=== PATIENT | male | born 1990 | race Caucasian/White ===

== ENCOUNTER 2023-04-10 11:17 | Inpatient (IN) ==
[2023-04-10] MEDS ORDERED: levETIRAcetam 1,000 MG in 0.9 % SODIUM CHLORIDE 100 ML IV STA ×2 (11:33→13:55)
[2023-04-10] MEDS ORDERED: SODIUM CHLORIDE 0.9% 1,000 ML IV ONE (11:34)
--- NOTE | 2023-04-10 11:37 | Emergency Department Note ---
Impression & Plan Seizure ED Provider Note Name: KAYLYNN LANIER Age: 33 Sex: Male Arrives Via: Ambulance Informant: Patient, EMS, fianc ED Provider: Dillan Hamilton MD Chief Complaint: Seizure Impression: As per impressions above Medical Decision Makin-year-old healthy male with a remote history of seizures though no seizures in several years. He has been doing well and feeling fine. This morning while at work patient was noted to have seizure for few minutes which broke followed by postictal period. Arrives in no distress awake alert oriented with no complaints. Patient was a bit confused about what is Keppra dose was so he was given a single 1 g dose IV while awaiting CT of the head and cervical spine. While in CT he was noted to have an acute seizure. Lasted a few minutes before eventually breaking after 2 mg IV Ativan. Did bite the tip of his tongue does not require closure. CT of the head and cervical spine eventually obtained which is unremarkable. Discussed with Mateo neurology who suggested further Keppra and hospitalization for further monitoring. Repeat evaluations patient still bit postictal but is starting to slowly wake up. Significant other is comfortable plan for hospitalization. Patient is afebrile he is no white count elevation he has no nuchal rigidity. I do not suspect that there is an underlying infection he is not septic or meningitic at this time. Triage/Nursing Notes reviewed by Me Differential:Primary seizure disorder, dehydration, exhaustion, drug/alcohol intoxication, electrolyte imbalance, intracranial mass or hemorrhage, many other pathologies considered Vital Signs: reviewed and remarkable for no significant abnormalities Interventions: Keppra 1 g IV x 2, Ativan 2 mg IV Labs:ED labs Reviewed by me and remarkable for no significant abnormalities other than elevated prolactin level consistent with recent seizure. Imaging:CT of the head without contrast as per my informal interpretation there is no intracranial mass or bleed appreciated. Confirmed by radiologist. CT of the cervical spine without contrast as per my informal interpretation there is no fracture or dislocation. Confirmed radiologist. Consults:Dr Ari Galindo Neurology. Dr Junito Galindo Hospitalist Plan: Disposition:Hospitalization. Condition: Good History of Present Illness: 33-year-old male arrives for evaluation post seizure. Patient had been at work this morning as he been feeling pretty tired the last few days. Per EMS patient with a 2 to 3-minute seizure which was tonic-clonic. Patient did strike his head as he fell to the ground. Patient states he feels a little bit tired but otherwise feels well now. Per EMS patient had a several minute postictal period. Patient has been having no headache, neck pain, chest pain, shortness of breath, fevers, chills, sick contacts or other concerning signs or symptoms. He does note that his 1-year-old daughter has been keeping him up recently and the holidays were busy. Denies any alcohol or drug use. Last seizure was in 2018 and has been on a stable dose of Keppra for this. Denies any other concerning signs or symptoms. States he otherwise feels well. Past Medical History:Epilepsy Home Medications:Keppra (no missed doses) Allergies:No known drug allergies Vitals:Blood Pressure: 115/71, Pulse 78, RR 18, T 36.6C, O2 97% on RA Physical Exam: GENERAL: Patient is tired/dehydrated appearing and in minimal distress. HEAD: Hematoma/abrasion left forehead RESPIRATORY: No dyspnea. Clear to auscultation and equal bilaterally. CARDIOVASCULAR: Regular rate and rhythm.No murmur appreciated. GASTROINTESTINAL: Abdomen soft, non-tender, no peritonitis. EXTREMITIES: Normal motion all extremities, no cyanosis, no edema. NEUROLOGIC: Alert and oriented. No focal neurologic deficits appreciated SKIN: No rash, no jaundice, no diaphoresis. PSYCH: Appropriate GCS: 15 ED Course: Times/Reassessments: Active seizure shortly after arrival broke with Ativan. Patient still postictal around time of hospitalization but is waking up. Critical Care: I have personally spent 30 minutes of critical care time in the direct management of this patient. Status Epilepticus with active seizure in ED. This was a life/limb threatening event. This 30 minutes is in excess of all separately billable procedures. Dillan Hamilton MD Past Med/Surg History Medical History (Updated 04/10/23 @ 17:34 by Dillan Hamilton MD) BRBPR (bright red blood per rectum) Surgical History (Updated 04/10/23 @ 15:22 by MARILUZ Masterson) No pertinent past surgical history Family History (Updated 04/10/23 @ 15:22 by MARILUZ Masterson) Father Colorectal cancer Social History (Updated 04/10/23 @ 15:22 by MARILUZ Masterson) Smoking Status: Never smoker Second Hand Exposure: No; Do You Dip or Chew Tobacco: No; Hx Alcohol Use: Yes Alcohol type: beer Hx Substance Use: No Preferred Language: Jamaican Communication Ability: Effective In Store Banker Required: No Beliefs That Will Affect Care: None Current Living Situation: Family Other Information That Helps Us Care for You: No Feels Safe at Home: Yes Assistive Devices: None Allergies Allergies Allergy/AdvReac Type Severity Reaction Status Date / Time No Known Allergies Allergy Mild Unverified 08/29/12 18:48 Home Meds Home Medications Medication Instructions Recorded Confirmed LORATADINE & PSEUDOEPHEDRINE 1 tab PO DAILY #0 tabs 06/11/15 04/10/23 (CLARITIN-D 24 HOUR) Levetiractam (Levetiracetam) 1,000 mg PO BID 04/10/23 04/10/23 Results & Data (ED) Vital Signs Vital Signs - 24 hr 04/10/23 11:24 04/10/23 11:27 04/10/23 11:30 Temperature 36.6 C Temperature Source Oral Pulse Rate 83 78 79 Pulse Rate [Apical] Respiratory Rate 18 22 Respiratory Effort / Characteristics Non-Labored Spontaneous Respiratory Depth Normal Respiratory Pattern Regular Blood Pressure 115/71 123/75 Blood Pressure [Left Arm] Blood Pressure Mean 85 91 Blood Pressure Mean [Left Arm] Blood Pressure Position Sitting Pulse Oximetry 97 97 Oxygen Delivery Method Room Air Room Air Sepsis Recent Fever Within 48 Hours No Sepsis New/Unexplained Change in Mental Status N/A Sepsis Action Taken by Nursing No Action Required 04/10/23 12:00 04/10/23 12:00 04/10/23 12:10 Temperature Temperature Source Pulse Rate 104 H Pulse Rate [Apical] 114 H Respiratory Rate 16 23 Respiratory Effort / Characteristics Respiratory Depth Respiratory Pattern Blood Pressure 127/69 Blood Pressure [Left Arm] 127/69 Blood Pressure Mean 88 Blood Pressure Mean [Left Arm] 88 Blood Pressure Position Pulse Oximetry 95 96 Oxygen Delivery Method Room Air Room Air Room Air Sepsis Recent Fever Within 48 Hours Sepsis New/Unexplained Change in Mental Status Sepsis Action Taken by Nursing 04/10/23 13:00 04/10/23 13:30 04/10/23 14:00 Temperature Temperature Source Pulse Rate 88 83 68 Pulse Rate [Apical] Respiratory Rate 16 18 20 Respiratory Effort / Characteristics Respiratory Depth Respiratory Pattern Blood Pressure 114/69 108/65 111/71 Blood Pressure [Left Arm] Blood Pressure Mean 84 79 84 Blood Pressure Mean [Left Arm] Blood Pressure Position Pulse Oximetry 96 95 98 Oxygen Delivery Method Room Air Room Air Room Air Sepsis Recent Fever Within 48 Hours Sepsis New/Unexplained Change in Mental Status Sepsis Action Taken by Nursing Laboratory Data 04/10/23 11:37 04/10/23 11:37 Lab Results 04/10/23 04/10/23 Range/Units 11:37 14:15 WBC 9.50 (4.8-10.8) K/ul RBC 5.05 (4.70-6.10) M/uL Hgb 15.7 (14.0-18.0) g/dl Hct 44.4 (42.0-52.0) % MCV 87.9 (80.0-100.0) fL MCH 31.1 (25.0-34.0) pg MCHC 35.4 (32.0-36.0) g/dL RDW Std Deviation 37.8 (36.4-46.3) fL RDW Coeff of [place]ooq 11.8 (11.5-14.5) % Plt Count 201 (130-400) K/uL MPV 10.9 (9.4-12.4) fL Immature Gran % (Auto) 0.3 % Neut % (Auto) 77.0 % Lymph % (Auto) 15.9 % [place] % (Auto) 5.6 % Eos % (Auto) 0.7 % Baso % (Auto) 0.5 % Neut # (Auto) 7.31 H (1.40-6.50) K/uL Lymph # (Auto) 1.51 (1.20-3.40) K/uL [place] # (Auto) 0.53 (0.11-0.59) K/uL Eos # (Auto) 0.07 (0.00-0.50) K/uL Baso # (Auto) 0.05 (0.00-0.20) K/uL Immature Gran # (Auto) 0.03 (0.01-0.20) K/uL Sodium 135 L (136-145) mmol/L Potassium 3.7 (3.5-5.1) mmol/L Chloride 104 (98-107) mmol/L Carbon Dioxide 19 L (21-32) mmol/L Anion Gap 12 H (3-11) BUN 14 (6-23) mg/dl Creatinine 0.97 (0.6-1.4) mg/dl Est Cr Clr Drug Dosing 114.3 ml/min Est GFR ( Amer) 117.6 ml/min Est GFR (Non-Af Amer) 101.4 ml/min BUN/Creatinine Ratio 14.4 (10-20) Glucose 192 H (70-99(Fasting)) mg/dl Calcium 9.3 (8.6-10.3) mg/dl Total Bilirubin 1.1 H (0.2-1.0) mg/dl Direct Bilirubin 0.1 (0-0.2) mg/dl AST 20 (13-39) U/L ALT 18 (7-52) U/L Alkaline Phosphatase 62 (34-104) U/L Total Protein 7.0 (6.0-8.3) gm/dl Albumin 4.4 (3.4-5.0) gm/dl Prolactin 52.10 ng/ml SARS-CoV-2 (PCR) NEGATIVE (Negative) Influenza Type A (PCR) Negative (Neg) Influenza Type B (PCR) Negative (Neg) RSV (RT-PCR) Negative (Neg) Administered Medications Discontinued Medications Levetiracetam 1,000 mg/ Sodium (Chloride) 110 mls @ 440 mls/hr IV NOW STA Stop: 04/10/23 11:47 Last Infusion: 04/10/23 12:27 Dose: Infused Documented By: Admin: 04/10/23 11:59 Dose: 440 mls/hr Documented By: YAMILET Sodium Chloride (Nss) 1,000 mls @ 999 mls/hr IV .Q1H1M ONE Stop: 04/10/23 12:34 Last Infusion: 04/10/23 14:36 Dose: Infused Documented By: Admin: 04/10/23 11:36 Dose: 999 mls/hr Documented By: YAMILET Levetiracetam 1,000 mg/ Sodium (Chloride) 110 mls @ 440 mls/hr IV NOW STA Stop: 04/10/23 14:09 Last Infusion: 04/10/23 16:34 Dose: Infused Documented By: Admin: 04/10/23 14:40 Dose: 440 mls/hr Documented By: YAMILET Lorazepam (Lorazepam 1 Mg/1 Ml Syr Ed Inj Use) Confirm Administered Dose 1 mg .ROUTE .STK-MED ONE Stop: 04/10/23 11:56 Last Admin: 04/10/23 11:59 Dose: Not Given Documented By: YAMILET Lorazepam (Lorazepam 1 Mg/1 Ml Syr Ed Inj Use) 2 mg IV ONE STA Stop: 04/10/23 11:57 Last Admin: 04/10/23 11:59 Dose: 2 mg Documented By: YAMILET Lorazepam (Lorazepam 1 Mg/1 Ml Syr Ed Inj Use) Confirm Administered Dose 1 mg .ROUTE .STK-MED ONE Stop: 04/10/23 11:58 Last Admin: 04/10/23 11:59 Dose: Not Given Documented By: YAMILET Imaging Data Radiologist's Impression: Cervical Spine CT 04/10/23 11:33 CT cervical spine wo con CLINICAL HISTORY: 33 years-old Male with trauma, post seizure confusion. Acute head trauma with seizure like activity COMPARISON: Head CT of same day TECHNIQUE: Multiple axial CT images of the cervical spine were obtained without contrast. A dose lowering technique was utilized adhering to the principles of ALARA. FINDINGS: No acute cervical spine fracture, subluxation or significant degenerative changes. The cervical soft tissues appear unremarkable. The visualized lung apices appear clear. IMPRESSION: No acute cervical spine fracture or subluxation. ACT 112: Negative or not required by law. The above report was generated using voice recognition software. It may contain grammatical, syntax or spelling errors. Electronically signed by: Good Li M.D. 04/10/2023 12:[address] 04/10/23 11:33 CT SCAN OF THE BRAIN WITHOUT IV CONTRAST CLINICAL HISTORY: Seizure. Forehead injury. COMPARISON STUDY: CT of the brain dated 06/11/2015. TECHNIQUE: Unenhanced axial CT scan of the brain is performed from the vertex to the skull base. A dose lowering technique was utilized adhering to the principles of ALARA. CT DOSE: 1142.41 mGy.cm FINDINGS: Brain parenchyma: The brain parenchyma is normal in appearance. There is no hemorrhage, mass effect, or evidence of acute territorial ischemia by CT criteria. Siegel-white matter differentiation is preserved. No extra-axial fluid collection is seen. Ventricles, sulci, cisterns: Normal in configuration. Intracranial vasculature: The visualized intracranial vasculature at the skull base is normal in appearance. Calvarium: Unremarkable. Sinuses and mastoids: There is mild minor mucosal thickening within the ethmoid sinuses. An 8 mm retention cyst is noted in the left sphenoid sinus. The mastoid air cells are well pneumatized. Orbits: The bony orbits are grossly intact. IMPRESSION: No acute intracranial abnormality. ACT 112: Negative or not required by law. Electronically signed by: En Bird M.D. 04/10/2023 12:52 PM Discharge Plan Visit Data Chief Complaint: Seizure ED Provider: Dillan Hamilton Discharge Problem: Seizure Patient Disposition: Admitted As Inpatient Discharge Instructions Interventions: ED Discharge Assessment Last Done: 04/10/23 16:19
[2023-04-10] MEDS ORDERED: LORazepam 1 MG/1 ML SYR ED Inj Use ONE ×2 (11:55→11:57)
[2023-04-10] MEDS ORDERED: LORazepam 1 MG/1 ML SYR ED Inj Use IV STA (11:56)
[2023-04-10 12:05] LABS: Basophils # (auto) 0.05 K/uL (0.00-0.20); Basophils % (auto) 0.5 %; Eosinophils # (auto) 0.07 K/uL (0.00-0.50); Eosinophils % (auto) 0.7 %; Hematocrit (blood only) 44.4 % (42.0-52.0); Hemoglobin 15.7 g/dl (14.0-18.0); Immature Granulocytes # (auto) 0.03 K/uL (0.01-0.20); Immature Granulocytes % (auto) 0.3 %; Lymphocytes # (auto) 1.51 K/uL (1.20-3.40); Lymphocytes % (auto) 15.9 %; Mean Corpuscular Hemoglobin 31.1 pg (25.0-34.0); Mean Corpuscular Hgb Conc 35.4 g/dL (32.0-36.0); Mean Corpuscular Volume 87.9 fL (80.0-100.0); Mean Platelet Volume 10.9 fL (9.4-12.4); Monocytes # (auto) 0.53 K/uL (0.11-0.59); Monocytes % (auto) 5.6 %; Neutrophils # (auto) 7.31 K/uL (1.40-6.50); Platelet Count 201 K/uL (130-400); RDW Coefficient of Variation 11.8 % (11.5-14.5); RDW Standard Deviation 37.8 fL (36.4-46.3); Red Blood Count 5.05 M/uL (4.70-6.10)
[2023-04-10 12:18] LABS: Albumin Level 4.4 gm/dl (3.4-5.0); BUN Creatinine Ratio 14.4 (10-20); Bilirubin Direct 0.1 mg/dl (0-0.2); Bilirubin,Total 1.1 mg/dl (0.2-1.0); Calcium 9.3 mg/dl (8.6-10.3); Creatinine Clr Calc Pharmacy 114.3 ml/min; Est GFR (African American) 117.6 ml/min; Est GFR (Non-African American) 101.4 ml/min; Potassium 3.7 mmol/L (3.5-5.1)
--- OUTSIDE RECORDS SUMMARY | 2023-04-10 12:53 | External Medical Summary | Summary of Care ---
Author Name Unknown Organization [facility] Address [address] [place] [address] Phone [phone] Care Team Providers Care Process Mechanic Name Role Phone Wang Davis MD Primary Care Provider [phone] Reason for Visit * Reason Comments Acute Pt presents with sin us pressure, chest congestion, sinus drainage, and headache. Symptoms started about a week ago. Encounter Details Date Type Department Care Team (Late st Contact Info) Description 03/15/2023 7:40 AM EST Office Visit [facility] [address] [place] [address] Walter Hooper MD [address] [place] [address] Acute frontal sinusitis, recurrence not specified*; Bronchitis, complicated; Generalized convulsive epilepsy without intractable epilepsy (HCC) Allergies No known active allergiesdocumented as of this encounter (statuses as of 03/15/2023) Medications Medication Sig Dispensed Refills Start Date End Date Status levETIRAcetam 1000 MG Oral Tablet Take 1 Tablet by mouth in the morning and 1 Tablet before bedtime. 180 Tablet 3 05/04/2022 Active Amoxicillin-Pot Clavulanate 875-125 MG Oral Tablet (Augmentin) Take 1 Tablet by mouth in the morning and 1 Tablet before bedtime. Do all this for 10 days. 20 Tablet 0 03/15/2023 03/25/2023 Active Albuterol Sulfate HFA 108 (90 Base) MCG/ACT Inhalation Aerosol Solution Inhale 2 Puffs by mouth every 6 hours as needed (sob, cough). 18 g 1 03/15/2023 Active guaiFENesin ER 600 MG Oral Tablet Extended Release 12 Hour (Mucinex) Take 1 Tablet by mouth 2 times a day as needed for Congestion. Take with plenty of water. Do not cut, crush or chew 40 Tablet 2 03/15/2023 Active documented as of this encounter (statuses as of 03/15/2023) Active Problems Problem Noted Date Diagnosed Date Generalized convulsive epile psy without intractable epilepsy 05/18/2017 documented as of this encounter (statuses as of 03/15/2023) Resolved Problems Problem Noted Date Diagnosed Date Resolved Date Tobacco use disorder 05/18/2017 022 Seizure, grand mal 09/13/2016 8 NONE 11/02/2016 documented as of this encounter (statuses as of 03/15/2023) Immunizations Name Administration Dates Next Due TDAP (age 10 and older)(Boostrix) 07/19/2018 documented as of this encounter Social History Tobacco Use Types Packs/Day Years Used Date Smoking Tobacco: Former Cigarettes Q uit: 12/2020 Smokeless Tobacco: Never Alcohol Use Standard Drinks/Week Comments Yes 0 (1 standard drink = 0.6 oz pur e alcohol) PHQ-2 Answer Date Recorded PHQ-2 Score 0 07/19/2018 Sex and Gender Information Value Date Recorded Sex Assigned at Male 07/19/2018 3:07 PM EDT Gender Identity Male 07/19/2018 3:07 PM EDT Sexual Orientation Straight 07/19/2018 3: 07 PM EDT Job Start Date Occupation Industry Not on file Not on file Not on file documented as of this encounter Last Filed Vital Signs Vital Sign Reading Time Taken Comments Blood Pressure 108/72 03/15/2023 7:32 AM EST Pulse 72 03/15/2023 7:32 AM EST Temperature 37 C (98.6 F) 03/15/2023 7:32 AM EST Respiratory Rate 16 03/15/2023 7:32 AM EST Oxygen Saturation - - Inhaled Oxygen Concentration - - Weight 73.8 kg (162 lb 12.8 oz) 03/15/2023 7:32 AM EST Height - - Body Mass Index 20.9 01/02/2022 1:02 PM EDT documented in this encounter Progress Notes * Walter Hooper MD - 03/15/2023 7:43 AM EST Subjective Jason Almeida is a 33 year old male. Chief Complaint Patient presents with Acute Pt presents with sinus pressure, chest congestion, sinus drainage, and headache. Symptoms started about a week ago. HPI: Here for acute sinus infection , down to chest with productive coughs Worse in the morning Had low grade fever 3 days when he started sx But currently afebrile Known seasonal allergy ,using nasal sprays Hx of inhaler use in the past Known seizure d/o, stable, taking keppra No episode more than 5 yrs and f/u with neuro annually PMH: Patient Active Problem List Diagnosis Code Generalized convulsive epilepsy without intractable epilepsy (HCC) G40.309 Current Outpatient Medications Medication Sig Dispense Refill Amoxicillin-Pot Clavulanate 875-125 MG Oral Tablet (Augmentin) Take 1 Tablet by mouth in the morning and 1 Tablet before bedtime. Do all this for 10 days. 20 Tablet 0 Albuterol Sulfate HFA 108 (90 Base) MCG/ACT Inhalation Aerosol Solution Inhale 2 Puffs by mouth every 6 hours as needed (sob, cough). 18 g 1 guaiFENesin ER 600 MG Oral Tablet Extended Release 12 Hour (Mucinex) Take 1 Tablet by mouth 2 timesa day as needed for Congestion. Take with plenty of water. Do not cut, crush or chew 40 Tablet 2 levETIRAcetam 1000 MG Oral Tablet Take 1 Tablet by mouth in the morning and 1 Tablet before bedtime. 180 Tablet 3 No current facility-administered medications for this visit. Past Medical History: Diagnosis Date NONE Past Surgical History: Procedure Laterality Date NONE Review of patient's allergies indicates: No Known Allergies Family History Problem Relation Age of Onset Pancreatic cancer Father 57 Bone cancer Uncle (Paternal) 77 possible metastasis Family Status Relation Status Fa PUNC Social History Socioeconomic History Marital status: Single Spouse name: Not on file Number of children: Not on file Years of education: Not on file Highest education level: Not on file Occupational History Not on file Tobacco Use Smoking status: Former Types: Cigarettes Quit date: 12/2020 Years since quittin.2 Smokeless tobacco: Never Substance and Sexual Activity Alcohol use: Yes Drug use: No Sexual activity: Never Other Topics Concern Not on file Social History Narrative Not on file Social Determinants of Health Financial Resource Strain: Not on file Food Insecurity: Not on file Transportation Needs: Not on file Physical Activity: Not on file Stress: Not on file Social Connections: Not on file Intimate Partner Violence: Not on file Housing Stability: Not on file Review of Systems Constitutional: Positive for fatigue. Negative for activity change, appetite change, chills, diaphoresis, fever and unexpected weight change. HENT: Positive for congestion, postnasal drip and sinus pressure. Negative for ear discharge, ear pain, facial swelling, hearing loss, rhinorrhea, sinus pain, sneezing, sore throat and tinnitus. Eyes: Negative for visual disturbance. Respiratory: Positive for cough and chest tightness. Negative for shortness of breath and wheezing. Cardiovascular: Negative for chest pain, palpitations and leg swelling. Gastrointestinal: Negative for abdominal distention and abdominal pain. Endocrine: Negative. Allergic/Immunologic: Positive for environmental allergies. Neurological: Positive for headaches. Negative for dizziness, tremors, seizures, syncope, speech difficulty, weakness, light-headedness and numbness. Psychiatric/Behavioral: Positive for sleep disturbance. Negative for agitation and behavioral problems. Objective BP 108/72 | Pulse 72 | Temp 37 C (98.6 F) | Resp 16 | Wt 73.8 kg (162 lb 12.8 oz) | BMI 20.90 kg/m | BSA 1.96 m Physical Exam Constitutional: General: He is not in acute distress. Appearance: Normal appearance. He is not ill-appearing, toxic-appearing or diaphoretic. HENT: Head: Normocephalic and atraumatic. Nose: Congestion present. No rhinorrhea. Eyes: Extraocular Movements: Extraocular movements intact. Cardiovascular: Rate and Rhythm: Normal rate and regular rhythm. Pulses: Normal pulses. Heart sounds: Normal heart sounds. No murmur heard. Pulmonary: Effort: Pulmonary effort is normal. No respiratory distress. Breath sounds: No stridor. Rhonchi present. No wheezing or rales. Chest: Chest wall: No tenderness. Abdominal: Palpations: Abdomen is soft. Musculoskeletal: Right lower leg: No edema. Left lower leg: No edema. Neurological: General: No focal deficit present. Mental Status: He is alert and oriented to person, place, and time. Psychiatric: Mood and Affect: Mood normal. Behavior: Behavior normal. ASSESSMENT/PLAN: Acute frontal sinusitis, recurrence not specified (Primary) Bronchitis, complicated Generalized convulsive epilepsy without intractable epilepsy (HCC) Other orders - Amoxicillin-Pot Clavulanate 875-125 MG Oral Tablet (Augmentin); Take 1 Tablet by mouth in the morning and 1 Tablet before bedtime. Do all this for 10 days. - Albuterol Sulfate HFA 108 (90 Base) MCG/ACT Inhalation Aerosol Solution; Inhale 2 Puffs by mouth every 6 hours as needed (sob, cough). - guaiFENesin ER 600 MG Oral Tablet Extended Release 12 Hour (Mucinex); Take 1 Tablet by mouth 2 times a day as needed for Congestion. Take with plenty of water. Do not cut, crush or chew Cont OTC ABx 7-10 days Mucinex Hydration enough Walter Hooper MD documented in this encounter Nursing Notes * Whitney Moulton MED ASSIST - 03/15/2023 7:32 AM EST The patient has been properly identified by confirmation of name and date of . Chief Complaint Patient presents with Acute Pt presents with sinus pressure, chest congestion, sinus drainage, and headache. Symptoms started about a week ago. documented in this encounter Plan of Treatment Upcoming Encounters Date Type Department Care Team (Late st Contact Info) Description 05/04/2023 8:40 AM EST Office Visit Neurology [address] [place] [address] Judith Coleman MD [address] [place] [address] Health Maintenance Due Date Last Done Comments Hepatitis B (1 of 3 - 3-dose series) 1989 COVID-19 Vaccine (#1) 1989 Depression Screening 07/20/2019 07/19/2018 Influenza Vaccine (FLU shot) (#1) 2022 DTaP,Tdap,and Td Vaccines (7 - Td or Tdap) 07/19/2028 07/19/2018, 06/27/1993, 05/13/1990, Additional history exists GARDASIL-HPV IMMUNIZATION SERIES Aged Out No longer eligible based on patient's age to complete this topic MENINGOCOCCAL (MENACTRA/MENVEO) Aged Out No longer eligible based on patient's age to complete this topic Pneumococcal Vaccine: Pediatrics (0 to 5 Years) and At-Risk Patients (6 to 64 Years) Aged Out No longer eligible based on patient's age to complete this topic documented as of this encounter Medical Devices Not on filedocumented as of this encounter Visit Diagnoses Diagnosis Acute frontal sinusitis, recurrence not specified- Primary Bronchitis, complicated Bronchitis, not specified as acute or chronic Generalized convulsive epilepsy without intractable epilepsy (HCC) Generalized convulsive epilepsy without mention of intractable epilepsy documented in this encounter Care Teams Process Mechanic Relationship Specialty Start Date End Date Wang Davis MD [address] [place] [address] PCP - General Family Medicine 04/19/17 documented as of this encounter"
--- NOTE | 2023-04-10 12:54 | CT Scan Report ---
CT SCAN OF THE BRAIN WITHOUT IV CONTRAST CLINICAL HISTORY: Seizure. Forehead injury. COMPARISON STUDY: CT of the brain dated 06/11/2015. TECHNIQUE: Unenhanced axial CT scan of the brain is performed from the vertex to the skull base. A d ose lowering technique was utilized adhering to the principles of ALARA. CT DOSE: 1142.41 mGy.cm FINDINGS: Brain parenchyma: The brain parenchyma is normal in appearance. There is no hemorrhage, mass effect, or evidence of acute territorial ischemia by CT criteria. Siegel-white matter differentiation is preser ramu. No extra-axial fluid collection is seen. Ventricles, sulci, cisterns: Normal in configuration. Intracranial vasculature: The visualized intracranial vasculature at the skull base is normal in appe arance. Calvarium: Unremarkable. Sinuses and mastoids: There is mild minor mucosal thickening within the ethmoid sinuses. An 8 mm rete ntion cyst is noted in the left sphenoid sinus. The mastoid air cells are well pneumatized. Orbits: The bony orbits are grossly intact. IMPRESSION: No acute intracranial abnormality. ACT 112: Negative or not required by law. Electronically signed by: En Bird M.D. 04/10/2023 12:52 PM
--- NOTE | 2023-04-10 12:58 | CT Scan Report ---
CT cervical spine wo con CLINICAL HISTORY: 33 years-old Male with trauma, post seizure confusion. Acute head trauma with seiz ure like activity COMPARISON: Head CT of same day TECHNIQUE: Multiple axial CT images of the cervical spine were obtained without contrast. A dose low ering technique was utilized adhering to the principles of ALARA. FINDINGS: No acute cervical spine fracture, subluxation or significant degenerative changes. The cerv ical soft tissues appear unremarkable. The visualized lung apices appear clear. IMPRESSION: No acute cervical spine fracture or subluxation. ACT 112: Negative or not required by law. The above report was generated using voice recognition software. It may contain grammatical, syntax o r spelling errors. Electronically signed by: Good Li M.D. 04/10/2023 12:57 PM
[2023-04-10] MEDS ORDERED: ALUMINUM/MAGNESIUM SUSP 30 ML UDC PO PRN (14:20)
[2023-04-10] MEDS ORDERED: POLYETHYLENE (MIRALAX) 17 GM PACK PO PRN (14:20)
[2023-04-10] MEDS ORDERED: ACETAMINOPHEN 325 MG TAB PO PRN (14:20)
[2023-04-10] MEDS ORDERED: ONDANSETRON INJ 2 MG/ML 2 ML VIAL IV PRN (14:20)
[2023-04-10] MEDS ORDERED: MAGNESIUM HYDROXIDE SUSP 30 ML UDC PO PRN (14:20)
--- NOTE | 2023-04-10 14:26 | History & Physical Report ---
Date of Service April 10, 2023 Assessment & Plan (1) Seizure: (2) BRBPR (bright red blood per rectum): Plan Mr. Almeida is a 33-year-old male that presented to the ED after experiencing a 2 to 3-minute seizure, tonic-clonic. He did hit his head during his initial seizure. Upon arrival to the ED, he was loaded with 1 g IV Keppra. He was then noted to have one additional seizure. ED consulted on-call [facility] neurology and 1 additional gram of Keppra IV was administered along with Ativan. Patient is postictal and able to have conversation. He reports his last seizure was 2018; today felt 'hazy' and 'things smelled different' therefore he was able to discern he was about to have a seizure. He reports having more insomnia lately. Reports compliance with medications.Head CT negative, CS CT negative in ED. No leukocytosis or other lab abnormalities. No additional past medical history outside of known seizure disorder. Patient follows with Judith Rebolledo with neurology at [facility] and her his last appointment was April 2022 and is scheduled to have yearly follow-ups. His last known seizure prior to this was 2018. He is compliant with his Keppra. Per review of outpatient records he has been doing well with no prior seizure events after 2018. It appears as though there has been additional stressors include home including a [id number]. Drinks 2-3 cups of coffee per day, no sugar soda drinks. No alcohol or recreational drug use. Does not appear toxic. Suspect this is an individual with known seizure disorder triggered by the holiday stressors and having a young child at home over Nolan. Will continue home dose of Keppra, obtain brain MRI and EEG along with Neuro consultation. Will rule out infectious cause with blood and urine cultures. Will obtain FOBT and trend Hgb for BRBPR. Admit to PCU with seizure and fall precautions. Seizures: Acute Tonic-clonic seizure x 2 today lasting up to 2 minutes Received a total of 2 g IV Keppra in ED Received a total of 4 mg IV Ativan during active seizure Postictal state; able to answer questions appropriately Head CT and cervical spine CT negative No leukocytosis Keppra level pending Will check Vitamin B12, D levels Will check Lyme MRI brain with/without contrast ordered EEG ordered Ativan 1 mg IV once PRN for any add'l seizures Seizure, fall, and aspiration precautions added Neurology consultation placed; continue home dose of Keppra for now BRBPR: Acute No external hemorrhoids internal exam; blood on toilet paper Father at a young age (unsure how old) from colon cancer will add FOBT Hgb 15.7; will trend in AM Would benefit from OPT colonoscopy Disposition: PCP Dr. Davis CODE STATUS: Full code VTE prophylaxis: Lovenox SQ I spent a total of 65 minutes coordinating, documenting, and providing care for this patient excluding time spent in the performance of separately billed services. All of the aforementioned completed while collaborating with the assigned attending physician for a full treatment plan. Please see their a ddendum for further details. History of Present Illness Chief Complaint: seizures Primary Care Provider: Dr. Davis Mr. Almeida is a 33-year-old male that presented to the ED after experiencing a 2 to 3-minute seizure, tonic-clonic. He did hit his head during his initial seizure. Upon arrival to the ED, he was loaded with 1 g IV Keppra. He was then noted to have one additional seizure. ED consulted on-call [facility] and 1 additional gram of Keppra IV was administered along with Ativan. Patient is postictal and able to have conversation. He reports his last seizure was 2018; today felt 'hazy' and 'things smelled different' therefore he was able to discern he was about to have a seizure. He reports having more insomnia lately. Reports compliance with medications. Head CT negative, CS CT negative in ED. No leukocytosis or other lab abnormalities. No additional past medical history outside of known seizure disorder. Patient follows with Judith Rebolledo with neurology at [facility] and her his last appointment was April 2022 and is scheduled to have yearly follow-ups. His last known seizure prior to this was 2018. He is compliant with his Keppra. Per review of outpatient records he has been doing well with no prior seizure events after 2018. It appears as though there has been additional stressors include home including a [id number]. Drinks 2-3 cups of coffee per day, no sugar soda drinks. No alcohol or recreational drug use. Does not appear toxic. Patient denies fever chills, headache, chest pain, dizziness, shortness of breath, visual or auditory disturbances, loss of bowel and bladder control, other recent falls or trauma. Suspect this is an individual with known seizure disorder triggered by the holiday stressors and having a young child at home over [place]ol[place]. Will continue home dose of Keppra, obtain brain MRI and EEG along with Neuro consultation. Will rule out infectious cause with blood and urine cultures. Will obtain FOBT and trend Hgb for BRBPR. Admit to PCU with seizure and fall precautions. Patient will be admitted for further evaluation and management. Please see A/P for further details. Allergies Allergy/AdvReac Type Severity Reaction Status Date / Time No Known Allergies Allergy Mild Unverified 08/29/12 18:48 Home Medications Medication Instructions Recorded Confirmed Type LORATADINE & PSEUDOEPHEDRINE 1 tab PO DAILY #0 tabs 06/11/15 04/10/23 History (CLARITIN-D 24 HOUR) Levetiractam (Levetiracetam) 1,000 mg PO BID 04/10/23 04/10/23 History Past Med/Surg History Medical History (Updated 04/10/23 @ 15:21 by MARILUZ Masterson) BRBPR (bright red blood per rectum) Surgical History (Updated 04/10/23 @ 15:22 by MARILUZ Masterson) No pertinent past surgical history Family History (Updated 04/10/23 @ 15:22 by MARILUZ Masterson) Father Colorectal cancer Social History (Updated 04/10/23 @ 15:22 by MARILUZ Masterson) Smoking Status: Never smoker Second Hand Exposure: No; Do You Dip or Chew Tobacco: No; Hx Alcohol Use: Yes Alcohol type: beer Hx Substance Use: No Preferred Language: Lithuanian Communication Ability: Effective 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 Beliefs That Will Affect Care: None Current Living Situation: Family Other Information That Helps Us Care for You: No Feels Safe at Home: Yes Assistive Devices: None Review of Systems Review of Systems: Neuro: (-) Falls, trauma, slurred speech HEENT: (-) ZAMAN, dizziness, dysphagia, visual or auditory changes CV: (-) CP, palpitations, swelling Resp: (-) SOB GI: (-) appetite changes, N/V/D, bowel changes : (-) urinary changes Skin: (-) rashes Psych: (-) anxiety, depression Physical Exam Physical Exam: Neuro: AAOx4, PERRLA, no aphagia, memory changes, CNII-XII grossly intact HEENT: head normocephalic, moist mucus membranes CV: S1/S2, (-) M/G/R, (-) edema, cap refill < 3 seconds Resp: Lungs CTA in all oropeza. On RA GI: Abdomen S/NT/ND, Ax4 bowel sounds, (-) CVA tenderness Dr. Wild performed JULIEN; scant blood on tissue paper. Musculoskeletal: 5/5 B/L UE strength, 5/5 B/L LE strength. No gait disturbance Skin: (-) rashes , (-) erythema. Psych: euthymic mood Results & Data Results & Data Vital Signs (Past 12 Hours) Vital Signs Temp Pulse Pulse Resp BP BP Pulse Ox 04/10/23 13:30 83 18 108/65 95 04/10/23 13:00 88 16 114/69 96 04/10/23 12:10 104 H 23 127/69 96 04/10/23 12:00 114 H 16 127/69 95 04/10/23 12:00 04/10/23 11:30 79 22 123/75 97 04/10/23 11:27 78 04/10/23 11:24 36.6 C 83 18 115/71 97 O2 Del Method 04/10/23 13:30 Room Air 04/10/23 13:00 Room Air 04/10/23 12:10 Room Air 04/10/23 12:00 Room Air 04/10/23 12:00 Room Air 04/10/23 11:30 Room Air 04/10/23 11:27 04/10/23 11:24 Room Air Laboratory Results Short CBC 04/10/23 Range/Units 11:37 WBC 9.50 (4.8-10.8) K/ul Hgb 15.7 (14.0-18.0) g/dl Hct 44.4 (42.0-52.0) % Plt Count 201 (130-400) K/uL BMP 04/10/23 11:37 Sodium 135 L Potassium 3.7 Chloride 104 Carbon Dioxide 19 L BUN 14 Creatinine 0.97 Glucose 192 H Calcium 9.3 Liver Function 04/10/23 Range/Units 11:37 Total Bilirubin 1.1 H (0.2-1.0) mg/dl Direct Bilirubin 0.1 (0-0.2) mg/dl AST 20 (13-39) U/L ALT 18 (7-52) U/L Alkaline Phosphatase 62 (34-104) U/L Albumin 4.4 (3.4-5.0) gm/dl Diagnostic Findings Cervical Spine CT 04/10/23 11:33 CT cervical spine wo con CLINICAL HISTORY: 33 years-old Male with trauma, post seizure confusion. Acute head trauma with seizure like activity COMPARISON: Head CT of same day TECHNIQUE: Multiple axial CT images of the cervical spine were obtained without contrast. A dose lowering technique was utilized adhering to the principles of ALARA. FINDINGS: No acute cervical spine fracture, subluxation or significant degenerative changes. The cervical soft tissues appear unremarkable. The visualized lung apices appear clear. IMPRESSION: No acute cervical spine fracture or subluxation. ACT 112: Negative or not required by law. The above report was generated using voice recognition software. It may contain grammatical, syntax or spelling errors. Electronically signed by: Good Li M.D. 04/10/2023 12:[address] 04/10/23 11:33 CT SCAN OF THE BRAIN WITHOUT IV CONTRAST CLINICAL HISTORY: Seizure. Forehead injury. COMPARISON STUDY: CT of the brain dated 06/11/2015. TECHNIQUE: Unenhanced axial CT scan of the brain is performed from the vertex to the skull base. A dose lowering technique was utilized adhering to the principles of ALARA. CT DOSE: 1142.41 mGy.cm FINDINGS: Brain parenchyma: The brain parenchyma is normal in appearance. There is no hemorrhage, mass effect, or evidence of acute territorial ischemia by CT criteria. Siegel-white matter differentiation is preserved. No extra-axial fluid collection is seen. Ventricles, sulci, cisterns: Normal in configuration. Intracranial vasculature: The visualized intracranial vasculature at the skull base is normal in appearance. Calvarium: Unremarkable. Sinuses and mastoids: There is mild minor mucosal thickening within the ethmoid sinuses. An 8 mm retention cyst is noted in the left sphenoid sinus. The mastoid air cells are well pneumatized. Orbits: The bony orbits are grossly intact. IMPRESSION: No acute intracranial abnormality. ACT 112: Negative or not required by law. Electronically signed by: En Bird M.D. 04/10/2023 12:52 PM Code Status & VTE Plan Code Status Full code in the event of cardiac respiratory arrest VTE Prophylaxis Plan VTE Prophylaxis will be ordered: Yes Supervising Physician Co-Signing Physician Notes I have seen and discussed the case with the collaborating MARILUZ. I agree with the above H&P. I have reviewed and confirmed the patients medical history, the findings on physical examination, and the patients diagnosis and treatment plan with Nidhi MCGRAW and agree with the information documented. In short, Mr. Almeida is a 33 year old with history of grand mal seizures without clear cause (2018 last seizure prior to presentation, who is being admitted for work up of seizure. Patient experienced 2 seizures 04/10, with reported aura prior to each episode. Patient denies recent illness, alcohol intake, medication changes. He notes staying awake and spotty sleep given 12month old child, as well as staying awake later than usual 04/08 to build toys for Nolan. Patient is compliant with keppra. Patient also reports 1 week of bloody output with BM, notable tenderness when wiping, which has worried patient given father recently passed of metastatic colon cancer at 69, but it is unclear how long he had been diagnosed. Physical exam notable for fatigued appearing gentleman. neurologically intact. tremulous. abdomen soft. External eval of anus without external hemorrhoids, JULIEN + Plan #Seizure #Prior Granmal -s/p 4mg Ativan, 2g keppra, last seizure 2017~ -Unclear provoking cause -CT -, plan for MRI -Resume home keppra -Prn ativan and seizure precautions -Neurology consulted, formal eval in am #BRBPR No external, but +JULIEN for BRBPR Trend CBC Hydrocortisone and bowel regimen Rest of plan as above
[2023-04-10 15:01] LABS: Influenza A virus by PCR Negative (Neg); Influenza B virus by PCR Negative (Neg); RSV by PCR Negative (Neg); SARS CoV2 RNA(COVID-19) Ceph NEGATIVE (Negative)
[2023-04-10] MEDS ORDERED: LORazepam 1 MG in SYRINGE 0.5 ML IV PRN (15:20)
[2023-04-10] MEDS ORDERED: HYDROCORTISONE HC 2.5% CRM 30GM TUBE EXT PRN (17:24)
[2023-04-10] MEDS ORDERED: GADOBUTROL 65ML VIAL IV ONE (17:52)
[2023-04-10 17:58] LABS: Lyme Ab IgG w/WB Rflx Negative (Negative)
[2023-04-10 17:59] LABS: Lyme Ab IgM w/WB Rflx Negative (Negative)
--- NOTE | 2023-04-10 19:30 | Magnetic Resonance Report ---
MRI OF THE BRAIN COMBO CLINICAL HISTORY: Seizure COMPARISON STUDY: CT of the brain dated 04/10/2023. MRI of the brain dated 06/12/2015. TECHNIQUE: MRI of the brain was performed utilizing various T1 and T2-weighted sequences in the axial , sagittal, and coronal planes. Contrast-enhanced sequences were acquired following the administratio n of 7.5 cc of Gadavist. The examination is performed using the seizure protocol. FINDINGS: Brain parenchyma: The brain parenchyma is normal in appearance. There is no hemorrhage or mass effect . There is no restricted diffusion to suggest acute ischemia. No enhancing mass lesion is identified on the postcontrast images. Siegel-white matter differentiation is preserved. No extra-axial fluid chicho ection is seen. The cerebellar tonsils are normal in configuration. Ventricles, sulci, and cisterns: Normal in configuration. Pituitary and sella: Unremarkable. Intracranial vasculature: Normal flow voids are maintained at the skull base. Orbits: The bony orbits are grossly intact. Orbital contents are normal in appearance. Sinuses and mastoids: There is mild mucosal thickening within the maxillary antra. Moderate mucosal t hickening is noted in the ethmoid sinuses. There is trace mucosal thickening in the left frontal sinu s and the left sphenoid sinus. The mastoid air cells are clear. Calvarium: Unremarkable. Cervical cord: Partially visualized cervical spinal cord is normal in morphology and signal intensity . IMPRESSION: No acute intracranial abnormality. ACT 112: Negative or not required by law. Electronically signed by: En Bird M.D. 04/10/2023 7:28 PM
[2023-04-10 21:06] LABS: Appearance Urine Cloudy (Clear); Bacteria Urine Automated Negative (Negative); Bilirubin Urine Negative (Negative); Blood Urine Negative (Negative); Color Urine Yellow; Glucose Urine UA Trace (Negative); Ketones Urine Negative (Negative); Leukocyte Esterase Urine Negative (Negative); Nitrite Urine Negative (Negative); Protein Urine 1+ (Negative); RBC Urine Automated 0-4 /hpf (0-4); Specific Gravity Urine 1.016 (1.000-1.030); Urobilinogen Urine Negative (Negative); pH Urine 5.5 (4.5-7.5)
[2023-04-10] MEDS: levETIRAcetam 500 MG TAB PO SCH (21:26)
[2023-04-10 21:38] LABS: Sperm Urine Present (None Prsent)
[2023-04-11 06:34] LABS: Hematocrit (blood only) 42.7 % (42.0-52.0); Hemoglobin 14.6 g/dl (14.0-18.0); Mean Corpuscular Hemoglobin 30.6 pg (25.0-34.0); Mean Corpuscular Hgb Conc 34.2 g/dL (32.0-36.0); Mean Corpuscular Volume 89.5 fL (80.0-100.0); Mean Platelet Volume 10.8 fL (9.4-12.4); Platelet Count 162 K/uL (130-400); RDW Coefficient of Variation 11.9 % (11.5-14.5); RDW Standard Deviation 39.6 fL (36.4-46.3); Red Blood Count 4.77 M/uL (4.70-6.10); White Blood Count 6.74 K/ul (4.8-10.8)
[2023-04-11 06:44] LABS: Albumin Globulin Ratio 1.6 (0.9-2); Albumin Level 3.9 gm/dl (3.4-5.0); BUN Creatinine Ratio 12.4 (10-20); Bilirubin,Total 1.9 mg/dl (0.2-1.0); Calcium 8.8 mg/dl (8.6-10.3); Creatinine Clr Calc Pharmacy 124.7 ml/min; Est GFR (African American) 129.3 ml/min; Est GFR (Non-African American) 111.6 ml/min; Globulin 2.4 gm/dl (2.5-4.0); Magnesium 2.2 mg/dl (1.7-2.4); Phosphorus 3.5 mg/dl (2.5-4.9); Potassium 3.9 mmol/L (3.5-5.1); Total Protein 6.3 gm/dl (6.0-8.3)
[2023-04-11 08:03] VITALS: RESP 18
[2023-04-11] MEDS: levETIRAcetam 500 MG TAB PO SCH (08:22)
[2023-04-11] MEDS ORDERED: ENOXAPARIN INJ 40 MG/0.4 ML SYR SQ SCH (09:00)
--- NOTE | 2023-04-11 11:10 | Neurology Consultation ---
Date of Consultation April 11, 2023 Assessment & Plan (1) Seizure: Generalized seizure - likely provoked as he reported missing several doses of AED over holiday MRI brain without overt intracranial abnormality He has returned to baseline and will continue previously prescribed 1000mg Keppra PO BID Continue seizure precuations Follow up outpatient Neurology Telehealth Consultation Telehealth Information Telehealth Information: I performed this visit using a real-time telehealth connection between my location and the patients location ([facility]). After connecting through interactive tele-video, patient was identified by name and date of and/or wristband check.Patient (or authorized healthcare patient admitting representative) was informed that this was a telemedicine visit and it was being conducted confidentially over secure lines. My office door was closed and no one else was present in the room with me.Patient (or authorized healthcare patient admitting representative) provided consent to proceed with the visit, expressed an understanding of privacy and security of the telemedicine visit, and gave permission to have a hospital patient admitting representative in the room in order to assist with the visit and to conduct portions of the visit, as needed. I informed the patient (or authorized healthcare patient admitting representative) that I reviewed their record and presented the opportunity for them to ask any questions regarding the visit today. The patient agreed to participate. History of Present Illness Reason for Consultation: Seizure Requesting Physician: Dr. Donaldson Attending Physician: Henrry Ash MD History of Present Illness 33yo male presents after demonstrating generalized seizure like activity. He reportedly suffered closed head injury during this event. CT brain without contrast reveals no evidence of acute intracranial pathology. He was noted to have second seizure in the ER with evidence of lateral tongue biting. He sage now returned to baseline and has difficulty recalling these events. He was loaded with Keppra IV in ER and has undergone MRI brain revealing no overt evidence of acute intracranial pathology. He reports last seizure approx five years ago on current regimen of Keppra 1000mg PO BID. He reports missing multiple doses of this medication coupled with ongoing stress at home with 18month old and missing usual sleep around holiday preparations. He is alert and oriented able to answer questions and follow commands without difficulty. Neurological examination nonlateralizing/nonfocal in terms of motor strength and coordination. No reported cephalgia or cervicalgia Denies chest pain/palpitations or shortness of breath No reported changes in vision hearing dizziness or paresthesia Denies recent fevers chills nausea vomiting changes in bowels or bladder Denies recent medication changes, recent illness or sick contacts, no reported recent travel at bedside, all questions answered. Allergies Allergy/AdvReac Type Severity Reaction Status Date / Time No Known Allergies Allergy Mild Unverified 08/29/12 18:48 Home Medications Medication Instructions Recorded Confirmed Type LORATADINE & PSEUDOEPHEDRINE 1 tab PO DAILY #0 tabs 06/11/15 04/10/23 History (CLARITIN-D 24 HOUR) Levetiractam (Levetiracetam) 1,000 mg PO BID 04/10/23 04/10/23 History Patient History Medical History (Updated 04/10/23 @ 17:34 by Dillan Hamilton MD) BRBPR (bright red blood per rectum) Surgical History (Updated 04/10/23 @ 15:22 by MARILUZ Masterson) No pertinent past surgical history Family History (Updated 04/10/23 @ 15:22 by MARILUZ Masterson) Father Colorectal cancer Social History (Updated 04/10/23 @ 15:22 by MARILUZ Masterson) Smoking Status: Never smoker Second Hand Exposure: No; Do You Dip or Chew Tobacco: No; Hx Alcohol Use: Yes Alcohol type: beer Hx Substance Use: No Preferred Language: Puerto [place]ican Communication Ability: Effective Farm Adviser Required: No Beliefs That Will Affect Care: None Current Living Situation: Family Current Living Situation Comment: Fiance and child x1 Other Information That Helps Us Care for You: No Feels Safe at Home: Yes Safety Concerns: Feels Safe At This Time Assistive Devices: None Physical Exam Neurological Examination: Mental Status: Awake and alert. Oriented to person, place, and time. Fluency naming repetition and comprehension appear grossly intact. Affect remains appropriate. CN testing: I: Denies changes in ability to smell II:Reports no changes in visual acuity III/IV/: No evidence of gaze preference, hippus, nystagmus or roving eye movements V: Facial sensation reportedly grossly intact to light touch bilaterally VII: Facial movements appear without evidence of asymmetry VIII: Hearing appears grossly intact to loud voice bilaterally IX/X: Palate appears to elevate symmetrically XI: Shoulder shrug appears symmetric/ grossly intact bilaterally XII: Tongue protrudes midline without evidence of biting Motor exam: Strength appears grossly intact/symmetric in all extremities Sensory: Sensation is reportedly grossly intact throughout Coordination: Finger to nose and heel to mathews were intact. No apparent evidence of dysmetria or dysdiadochokinesia Reflexes: Deferred Gait: Deferred Results & Data Vital Signs (Past 12 Hours) Vital Signs Temp Pulse Pulse Resp BP Pulse Ox O2 Del Method 04/11/23 07:59 36.7 C 60 18 102/58 L 97 Room Air 04/11/23 07:04 68 04/11/23 02:52 36.6 C 65 14 95/63 L 98 Room Air Laboratory Results Abnormal lab results 04/10/23 04/10/23 04/10/23 Range/Units 11:37 20:03 20:53 Neut # (Auto) 7.31 H (1.40-6.50) K/uL Sodium 135 L (136-145) mmol/L Chloride (98-107) mmol/L Carbon Dioxide 19 L (21-32) mmol/L Anion Gap 12 H (3-11) Glucose 192 H (70-99(Fasting)) mg/dl Total Bilirubin 1.1 H (0.2-1.0) mg/dl Globulin (2.5-4.0) gm/dl 25-OH Vitamin D Total 19.3 L (30-100) ng/ml Urine Appearance Cloudy A (Clear) Urine Protein 1+ H (Negative) Urine Glucose (UA) Trace H (Negative) Urine WBC (Auto) 5-10 H (0-5) /hpf U Epithel Cells (Auto) 10-20 H (0-5) /lpf Urine Sperm Present A (None Prsent) 04/11/23 Range/Units 05:55 Neut # (Auto) (1.40-6.50) K/uL Sodium (136-145) mmol/L Chloride 108 H (98-107) mmol/L Carbon Dioxide (21-32) mmol/L Anion Gap (3-11) Glucose 103 H (70-99(Fasting)) mg/dl Total Bilirubin 1.9 H D (0.2-1.0) mg/dl Globulin 2.4 L (2.5-4.0) gm/dl 25-OH Vitamin D Total (30-100) ng/ml Urine Appearance (Clear) Urine Protein (Negative) Urine Glucose (UA) (Negative) Urine WBC (Auto) (0-5) /hpf U Epithel Cells (Auto) (0-5) /lpf Urine Sperm (None Prsent) Diagnostic Findings Cervical Spine CT 04/10/23 11:33 CT cervical spine wo con CLINICAL HISTORY: 33 years-old Male with trauma, post seizure confusion. Acute head trauma with seizure like activity COMPARISON: Head CT of same day TECHNIQUE: Multiple axial CT images of the cervical spine were obtained without contrast. A dose lowering technique was utilized adhering to the principles of ALARA. FINDINGS: No acute cervical spine fracture, subluxation or significant degenerative changes. The cervical soft tissues appear unremarkable. The visualized lung apices appear clear. IMPRESSION: No acute cervical spine fracture or subluxation. ACT 112: Negative or not required by law. The above report was generated using voice recognition software. It may contain grammatical, syntax or spelling errors. Electronically signed by: Good Li M.D. 04/10/2023 12:[address] 04/10/23 11:33 CT SCAN OF THE BRAIN WITHOUT IV CONTRAST CLINICAL HISTORY: Seizure. Forehead injury. COMPARISON STUDY: CT of the brain dated 06/11/2015. TECHNIQUE: Unenhanced axial CT scan of the brain is performed from the vertex to the skull base. A dose lowering technique was utilized adhering to the principles of ALARA. CT DOSE: 1142.41 mGy.cm FINDINGS: Brain parenchyma: The brain parenchyma is normal in appearance. There is no hemorrhage, mass effect, or evidence of acute territorial ischemia by CT criteria. Siegel-white matter differentiation is preserved. No extra-axial fluid collection is seen. Ventricles, sulci, cisterns: Normal in configuration. Intracranial vasculature: The visualized intracranial vasculature at the skull base is normal in appearance. Calvarium: Unremarkable. Sinuses and mastoids: There is mild minor mucosal thickening within the ethmoid sinuses. An 8 mm retention cyst is noted in the left sphenoid sinus. The mastoid air cells are well pneumatized. Orbits: The bony orbits are grossly intact. IMPRESSION: No acute intracranial abnormality. ACT 112: Negative or not required by law. Electronically signed by: En Bird M.D. 04/10/2023 12:52 PM Brain MRI 04/10/23 14:49 MRI OF THE BRAIN COMBO CLINICAL HISTORY: Seizure COMPARISON STUDY: CT of the brain dated 04/10/2023. MRI of the brain dated 06/12/2015. TECHNIQUE: MRI of the brain was performed utilizing various T1 and T2-weighted sequences in the axial, sagittal, and coronal planes. Contrast-enhanced sequences were acquired following the administration of 7.5 cc of Gadavist. The examination is performed using the seizure protocol. FINDINGS: Brain parenchyma: The brain parenchyma is normal in appearance. There is no hemorrhage or mass effect. There is no restricted diffusion to suggest acute ischemia. No enhancing mass lesion is identified on the postcontrast images. Siegel-white matter differentiation is preserved. No extra-axial fluid collection is seen. The cerebellar tonsils are normal in configuration. Ventricles, sulci, and cisterns: Normal in configuration. Pituitary and sella: Unremarkable. Intracranial vasculature: Normal flow voids are maintained at the skull base. Orbits: The bony orbits are grossly intact. Orbital contents are normal in appearance. Sinuses and mastoids: There is mild mucosal thickening within the maxillary antra. Moderate mucosal thickening is noted in the ethmoid sinuses. There is trace mucosal thickening in the left frontal sinus and the left sphenoid sinus. The mastoid air cells are clear. Calvarium: Unremarkable. Cervical cord: Partially visualized cervical spinal cord is normal in morphology and signal intensity. IMPRESSION: No acute intracranial abnormality. ACT 112: Negative or not required by law. Electronically signed by: En Bird M.D. 04/10/2023 7:28 PM Medications Administered Home Medications Medication Instructions Recorded Confirmed Last Taken LORATADINE & PSEUDOEPHEDRINE 1 tab PO DAILY #0 tabs 06/11/15 04/10/23 Unknown (CLARITIN-D 24 HOUR) Levetiractam (Levetiracetam) 1,000 mg PO BID 04/10/23 04/10/23 Unknown Active Medications Generic Name Dose Route Start Last Admin Trade Name Freq PRN Reason Stop Dose Admin Enoxaparin Sodium 40 mg 04/11/23 09:00 04/11/23 08:22 Enoxaparin Inj 40 Mg/0.4 Ml Syr SQ 05/11/23 08:59 40 mg QAM APARNA Administration Levetiracetam 1,000 mg 04/10/23 21:00 04/11/23 08:22 Levetiracetam 500 Mg Tab PO 05/10/23 20:59 1,000 mg BID APARNA Administration
[2023-04-11 11:55] VITALS: BP 114/67; TEMP 97.9; O2SAT 96
--- NOTE | 2023-04-11 15:11 | Electroencephalogram ---
EEG Procedure Note Date of Service April 11, 2023 Start / End Times Start Time: 06:10 End Time: 06:30 Referring Physician Martina Donaldson History A 33 year old male with seizure x2. EEG performed for evaluation of epileptiform activity. Home Medication List Medication Instructions Recorded Confirmed Type LORATADINE & PSEUDOEPHEDRINE 1 tab PO DAILY #0 tabs 06/11/15 04/10/23 History (CLARITIN-D 24 HOUR) Levetiractam (Levetiracetam) 1,000 mg PO BID 04/10/23 04/10/23 History Inpatient Medication List Enoxaparin Sodium (Enoxaparin Inj 40 Mg/0.4 Ml Syr) 40 mg SQ QAM APARNA Stop: 05/11/23 08:59 Last Admin: 04/11/23 08:22 Dose: 40 mg Documented By: Levetiracetam (Levetiracetam 500 Mg Tab) 1,000 mg PO BID APARNA Stop: 05/10/23 20:59 Last Admin: 04/11/23 08:22 Dose: 1,000 mg Documented By: Admin: 04/10/23 21:26 Dose: 1,000 mg Documented By: SALLIE Discontinued Medications Gadobutrol (Gadobutrol 65ml Vial) 7.5 ml IV ONCE ONE Stop: 04/10/23 17:53 Last Admin: 04/10/23 17:53 Dose: 7.5 ml Documented By: HONEY Levetiracetam 1,000 mg/ Sodium (Chloride) 110 mls @ 440 mls/hr IV NOW STA Stop: 04/10/23 11:47 Last Infusion: 04/10/23 12:27 Dose: Infused Documented By: Admin: 04/10/23 11:59 Dose: 440 mls/hr Documented By: YAMILET Sodium Chloride (Nss) 1,000 mls @ 999 mls/hr IV .Q1H1M ONE Stop: 04/10/23 12:34 Last Infusion: 04/10/23 14:36 Dose: Infused Documented By: Admin: 04/10/23 11:36 Dose: 999 mls/hr Documented By: YAMILET Levetiracetam 1,000 mg/ Sodium (Chloride) 110 mls @ 440 mls/hr IV NOW STA Stop: 04/10/23 14:09 Last Infusion: 04/10/23 16:34 Dose: Infused Documented By: Admin: 04/10/23 14:40 Dose: 440 mls/hr Documented By: YAMILET Lorazepam (Lorazepam 1 Mg/1 Ml Syr Ed Inj Use) Confirm Administered Dose 1 mg .ROUTE .STK-MED ONE Stop: 04/10/23 11:56 Last Admin: 04/10/23 11:59 Dose: Not Given Documented By: YAMILET Lorazepam (Lorazepam 1 Mg/1 Ml Syr Ed Inj Use) 2 mg IV ONE STA Stop: 04/10/23 11:57 Last Admin: 04/10/23 11:59 Dose: 2 mg Documented By: YAMILET Lorazepam (Lorazepam 1 Mg/1 Ml Syr Ed Inj Use) Confirm Administered Dose 1 mg .ROUTE .STK-MED ONE Stop: 04/10/23 11:58 Last Admin: 04/10/23 11:59 Dose: Not Given Documented By: YAMILET Description This is a 21 electrode EEG with a single channel dedicated to limited EKG. The electrodes were placed in accordance with the International 10-20 system. REPORT: At the onset of the EEG the patient is drowsy. The background is symmetric and continuous. The posterior dominant rhythm is 9 Hz. Drowsiness is characterized by increased theta activity, reduce blink rate, and decreased myogenic artifact. No Stage 2 sleep transients are seen. Photic does not induce any abnormalities. Interpretation IMPRESSION: This is a normal awake and drowsy 20 minute routine EEG. No epileptiform activity is seen.
--- NOTE | 2023-04-11 15:46 | Discharge Summary ---
Date of Service April 11, 2023 Admission HPI Per Admitting Provider Mr. Almeida is a 33-year-old male that presented to the ED after experiencing a 2 to 3-minute seizure, tonic-clonic. He did hit his head during his initial seizure. Upon arrival to the ED, he was loaded with 1 g IV Keppra. He was then noted to have one additional seizure. ED consulted on-call [facility] neurology and 1 additional gram of Keppra IV was administered along with Ativan. Patient is postictal and able to have conversation. He reports his last seizure was 2018; today felt 'hazy' and 'things smelled different' therefore he was able to discern he was about to have a seizure. He reports having more insomnia lately. Reports compliance with medications. Head CT negative, CS CT negative in ED. No leukocytosis or other lab abnormalities. No additional past medical history outside of known seizure disorder. Patient follows with Judith Rebolledo with neurology at [facility] and her his last appointment was April 2022 and is scheduled to have yearly follow-ups. His last known seizure prior to this was 2018. He is compliant with his Keppra. Per review of outpatient records he has been doing well with no prior seizure events after 2018. It appears as though there has been additional stressors include home including a [id number]. Drinks 2-3 cups of coffee per day, no sugar soda drinks. No alcohol or recreational drug use. Does not appear toxic. Patient denies fever chills, headache, chest pain, dizziness, shortness of breath, visual or auditory disturbances, loss of bowel and bladder control, other recent falls or trauma. Suspect this is an individual with known seizure disorder triggered by the holiday stressors and having a young child at home over Nolberto. Will continue home dose of Keppra, obtain brain MRI and EEG along with Neuro consultation. Will rule out infectious cause with blood and urine cultures. Will obtain FOBT and trend Hgb for BRBPR. Admit to PCU with seizure and fall precautions. Patient will be admitted for further evaluation and management. Please see A/P for further details. Admission Exam Per Admitting Provider Neuro: AAOx4, PERRLA, no aphagia, memory changes, CNII-XII grossly intact HEENT: head normocephalic, moist mucus membranes CV: S1/S2, (-) M/G/R, (-) edema, cap refill < 3 seconds Resp: Lungs CTA in all oropeza. On RA GI: Abdomen S/NT/ND, Ax4 bowel sounds, (-) CVA tenderness Dr. Wild performed JULIEN; scant blood on tissue paper. Musculoskeletal: 5/5 B/L UE strength, 5/5 B/L LE strength. No gait disturbance Skin: (-) rashes , (-) erythema. Psych: euthymic mood Principal Diagnosis Seizure Bright red blood per rectum Discharge Exam GENERAL: Alert and oriented x3. NAD, on RA. HEENT: No pallor, no icterus. Pupils equal, round and reactive to light. Oral mucosa moist. NECK: No JVD, no neck masses. HEART: S1 and S2 heard. Regular rate and rhythm. No murmur, no gallop. RESPIRATORY SYSTEM: Normal AP diameter. No accessory muscle use. No wheezing, no crackles. ABDOMEN: Soft, bowel sounds present, nontender, no distention. CENTRAL NERVOUS SYSTEM: No facial droop. Speech is clear. Obeys simple commands. Moves extremities. EXTREMITIES: No edema, no erythema seen. Discharge Data Allergies Allergy/AdvReac Type Severity Reaction Status Date / Time No Known Allergies Allergy Mild Unverified 08/29/12 18:48 Consultations 04/10/23 14:20 Consult Neurology Routine 04/10/23 14:23 ED Decision to Admit Stat Ordered Studies 04/10/23 11:33 CT cervical spine wo con Stat CT head/brain wo con Stat 04/10/23 14:49 MRI Brain [MR brain wo/w con] Routine Hospital Course (1) Seizure: (2) BRBPR (bright red blood per rectum): Plan Per prior attending with addendum: Mr. Almeida is a 33-year-old male that presented to the ED after experiencing a 2 to 3-minute seizure, tonic-clonic. He did hit his head during his initial seizure. Upon arrival to the ED, he was loaded with 1 g IV Keppra. He was then noted to have one additional seizure. ED consulted on-call [facility] neurology and 1 additional gram of Keppra IV was administered along with Ativan. Patient is postictal and able to have conversation. He reports his last seizure was 2017; today felt 'hazy' and 'things smelled different' therefore he was able to discern he was about to have a seizure. He reports having more insomnia lately. Reports compliance with medications.Head CT negative, CS CT negative in ED. No leukocytosis or other lab abnormalities. No additional past medical history outside of known seizure disorder. Patient follows with Judith Rebolledo with neurology at [facility] and her his last appointment was April 2022 and is scheduled to have yearly follow-ups. His last known seizure prior to this was 2018. He is compliant with his Keppra. Per review of outpatient records he has been doing well with no prior seizure events after 2018. It appears as though there has been additional stressors include home including a [id number]. Drinks 2-3 cups of coffee per day, no sugar soda drinks. No alcohol or recreational drug use. Does not appear toxic. Suspect this is an individual with known seizure disorder triggered by the holiday stressors and having a young child at home over Nolberto. Will continue home dose of Keppra, obtain brain MRI and EEG along with Neuro consultation. Will rule out infectious cause with blood and urine cultures. Will obtain FOBT and trend Hgb for BRBPR. Admit to PCU with seizure and fall precautions. Seizures: Acute Tonic-clonic seizure x 2 today lasting up to 2 minutes Received a total of 2 g IV Keppra in ED Received a total of 4 mg IV Ativan during active seizure Postictal state; able to answer questions appropriately Head CT and cervical spine CT negative No leukocytosis Keppra level pending Will check Vitamin B12, D levels Will check Lyme MRI brain with/without contrast ordered EEG ordered Ativan 1 mg IV once PRN for any add'l seizures Seizure, fall, and aspiration precautions added Neurology consultation placed; continue home dose of Keppra for now BRBPR: Acute No external hemorrhoids internal exam; blood on toilet paper Father at a young age (unsure how old) from colon cancer will add FOBT Hgb 15.7; will trend in AM Would benefit from OPT colonoscopy Disposition: PCP Dr. Davis CODE STATUS: Full code VTE prophylaxis: Lovenox SQ Addendum: Patient was seen and examined at bedside as a follow-up of seizure and BRBPR. Discussed with neurology, seizure most likely due to patient missing his home doses of antiepileptic drugs. For now plan to continue with prior to arrival doses of Keppra. Patient to follow-up with neurology in 1 to 2 weeks time upon discharge. EEG was done and normal. For BRBPR, Proctosol HC prescribed. Also patient to avoid constipation, can use laxative regularly with a goal of 1 bowel movements a day. If ongoing BRBPR, patient will benefit from outpatient colonoscopy in which case patient to follow-up with PCP office to set up the referral for GI evaluation. Patient is being discharged with following instruction at the point of discharge: Follow-up with your primary care physician within a week time and likely you will need labs CBC/CMP/magnesium/phosphorus. You were evaluated for seizure activity likely secondary to missing of your seizure medication over holiday. Neurology evaluated you, recommend outpatient neurology follow-up in about [address] until further evaluation by your neurology and their recommendation. Update your DMV. For your bright red blood per rectum, continue with your steroid suppository and bowel regimen. Avoid constipation. Continue follow-up with the PCP for long- term management. Take your medications as prescribed. Please make sure that you are able to get your medications today by calling your pharmacy before you leave the hospital so that your treatment continuity is not broken. Home Health Attestation I certify that this patient is under my care and that I, or a physicians first assistant manager working with me, had a face to-face encounter that meets the home health hfgz-lw-getk encounter requirements with this patient. The encounter with the patient was in whole, or in part, for the following medical condition, which is the primary reason for home health care (list medical condition): I certify that, based on my findings, the following services are medically necessary home health services: My clinical findings support the need for the above services because: Further, I certify that my clinical findings support that this patient is homebound (i.e. absences from home require considerable and taxing effort and are for medical reasons or druze services or infrequently or of short duration when for other reasons) because: Certification for Home Health Services: Based on the above findings, I certify that this patient is confined to the home and needs intermittent assisted care, physical therapy and/or speech therapy or continues to need occupational therapy. The patient is under my care, and I have initiated the establishment of the plan of care. This patient will be followed by a physician who will periodically review the plan of care. Total Time Total Time Spent Total Time Spent (In Minutes): 45 Discharge Plan Discharge Items Patient Disposition: Home - Self-Care Reason For Visit: SEIZURES Discharge Diagnosis: Seizure Bright red blood per rectum Activity: Resume your previous activity Non-emergency contact: Primary Care Provider Call non-emergency contact if: you have any medication questions, your symptoms worsen and your temperature is above 101 Follow-up/Referrals: Wang Davis MD [Primary Care Provider] - (Date & Time 04/18/2023 10:40 AM Provider Wang Davis MD Department [facility] ) Judith Coleman MD [Physician] - (Date & Time 05/04/2023 8:40 AM Provider Judith Coleman MD Department Neurology [facility] ) Diet: Heart Healthy Addtl Attending Provider Instructions: Follow-up with your primary care physician within a week time and likely you will need labs CBC/CMP/magnesium/phosphorus. You were evaluated for seizure activity likely secondary to missing of your seizure medication over holiday. Neurology evaluated you, recommend outpatient neurology follow-up in about [address] until further evaluation by your neurology and their recommendation. Update your DMV. For your bright red blood per rectum, continue with your steroid suppository and bowel regimen. Avoid constipation. Continue follow-up with the PCP for long- term management. Take your medications as prescribed. Please make sure that you are able to get your medications today by calling your pharmacy before you leave the hospital so that your treatment continuity is not broken. Pending Studies at Discharge: Yes Stand-Alone Forms: [facility] [employer], Smoking Cessation Medications and DC Order Prescriptions: New polyethylene glycol 3350 [Miralax] 17 gram Powder In Packet 17 g PO DAILY Qty: 30 0RF hydrocortisone [Proctosol HC] 2.5 % Cream With Perineal Applicator 1 applic EXT BID 5 Days Qty: 30 0RF Continued LORATADINE & PSEUDOEPHEDRINE (CLARITIN-D 24 HOUR) 1 TAB tablet 1 tab PO DAILY Qty: 0 Levetiractam (Levetiracetam) 500 MG tablet 1,000 mg PO BID Discharge Orders: Discharge Order (Routine); Ordered 04/11/23 Ordered By: Henrry Ash Admission Data Admit Date/Time: 04/10/23 14:20 Attending Provider: Henrry Ash Admit Provider: Kenia Wild Primary Care Provider: Wang Davis Other Providers: Dalton Chapman; Kenia Wild
[2023-04-11 15:52] VITALS: PULSE 66
== END 2023-04-11 17:07 | disposition home or self-care (01) | DRG 101 ==
LOC: ED 11:17 → EDINP 14:20 → SUATTDRO 14:20 → 2E 16:19